=== PATIENT | male | born 1980 ===

== ENCOUNTER 2016-11-09 16:36 | Emergency (ER) | payer SELFPAY ==
[~2016-11-09] VITALS: Ht 180.3 cm; Wt 100.0 kg
[2016-11-09 16:47] VITALS: Ht 180.3 cm; Wt 100.0 kg
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
[2016-11-09] MEDS ORDERED: CEFTRIAXONE 250 MG INJ IM ONE (18:00)
[2016-11-09] MEDS ORDERED: AZITHROMYCIN 250 MG TAB PO ONE (18:00)
[2016-11-09] MEDS ORDERED: LORA10CA PO (19:02)
[2016-11-09] MEDS ORDERED: ERYTOPOI BOTH EYES (19:02)
[2016-11-09] MEDS ORDERED: ACET325C PO (19:02)
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
== END 2016-11-09 18:45 | disposition home or self-care (01) ==
LOC: FTE 16:36 → E/R 18:45
DX: Z20.2 Contact with and (suspected) exposure to infections with a predominantly sexual mode of transmission (principal)
CPT/HCPCS: 96372